=== PATIENT | male | born 2000 | race Caucasian/White ===

== ENCOUNTER 2024-03-31 19:23 | Emergency (ER) | payer SELFPAY ==
[2024-03-31] MEDS: Lidocaine 4% 1 each Patch TOP STA (20:48)
[2024-03-31] MEDS: Ketorolac 30 MG/ML SDV IM ONE (20:48)
== END 2024-03-31 21:14 | disposition home or self-care (01) ==
LOC: MW.ED 19:23
DX: M25.512 Pain in left shoulder (principal); A63.0 Anogenital (venereal) warts; Z88.0 Allergy status to penicillin; Z79.899 Other long term (current) drug therapy; Z75.8 Other problems related to medical facilities and other health care
CPT/HCPCS: 73020; 96372; 99283; A9270; J1885